=== PATIENT | female | born 1965 | race Caucasian/White ===

== ENCOUNTER 2024-06-12 06:48 | Day surgery (SDC) | payer OTHER ==
[2024-06-10 16:34] VITALS: BP 156/91
[~2024-06-12] VITALS: Ht 175.3 cm; Wt 63.6 kg
[~2024-06-12 06:48] MED LIST: MIDAZOLAM HCL 5 MG/5 ML VIAL IV PRN; fentaNYL citrate 100 MCG/2 ML VIAL IV PRN; propofoL 200 MG/20 ML VIAL ONE
[2024-06-12] MEDS ORDERED: LACTATED RINGER'S 1,000 ML IV SCH (07:00)
[2024-06-12] MEDS ORDERED: LIDOCAINE HCL 1% 5 ML SDV INJ ONE (07:00)
[2024-06-12] MEDS ORDERED: IBLOOD GLUCOSE TEST STRIP 1 EA TEST VI PRN (07:00)
[2024-06-12 07:04] VITALS: BP 123/65
[2024-06-12] MEDS ORDERED: NEURONTIN300 MG PO (07:09)
[2024-06-12] MEDS ORDERED: NEXIUM20 MG PO (07:10)
[2024-06-12] MEDS ORDERED: LANSOPRAZOLE30 MG PO (07:11)
[2024-06-12] MEDS ORDERED: BUSPIRONE HCL10 MG PO (07:11)
[2024-06-12] MEDS ORDERED: HYDROCHLOROTH12.5 M1 PO (07:12)
[2024-06-12] MEDS ORDERED: LACTATED RINGER'S 1,000 ML IV ONE (08:37)
--- NOTE | 2024-06-12 08:47 | NUR ---
06/12/24 0847 Holly Dillard 0842-PATIENT ARRIVED TO PACU ON 10L MASK ORAL AIRWAY IN PLACE RR EVEN LAYING LEFT LATERAL. NONAROUSABLE. ABDOMEN SOFT IVF INFUSING. SINUS BRADYCARDIA HR 50'S. 0846-PATIENT STARTING TO AROUSE OPENING EYES OPENS MOUTH AND ORAL AIRWAY REMOVED. DOZES BACK TO SLEEP. 6L MASK RR EVEN 100%
[2024-06-12 09:17] VITALS: BP 123/67
--- NOTE | 2024-06-12 09:48 | OR ---
[facility] [address], [place] [address] Signed DATE OF OPERATION: 06/12/2024 SURGEON: Chelo Robledo MD PREOPERATIVE DIAGNOSES: 1. Gastroesophageal reflux. 2. History of mild gastritis. 3. 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 4. Possible gastroparesis. 5. Nausea and vomiting q.a.m. 6. Paternal grandmother with colon cancer dying at age 52. 7. Hemorrhoids. 8. Redundant colon. 9. Colonic inertia. POSTOPERATIVE DIAGNOSES: 1. Mild diffuse gastritis. 2. Short lower esophageal sphincter. 3. GE junction at 35 cm. 4. Tortuous sigmoid and left colon. 5. Minimal to moderate internal hemorrhoids. 6. Minimal internal anal skin tags. PROCEDURES: 1. Esophagogastroduodenoscopy with CLOtest and biopsies of the antrum, GE junction. 2. Colonoscopy without biopsy. FINDINGS: The patient did not have any visible evidence of Madrigal's esophagus. ESTIMATED BLOOD LOSS: None. INDICATIONS: Jena is a 59-year-old female, asked to see me for a followup upper and lower endoscopy. She had a colonoscopy in [address] 44 [address] Boubacar Coughlin. She had GI bleeding associated with hemorrhoids. She later went to see Dr. Obregon for upper and lower endoscopy in 2018 at the age of 53. She had a redundant colon and possibly Madrigal's esophagus and gastroparesis. She later went to see Dr. Leodan Rosado for followup upper endoscopy in 2020 at the age of 56. The biopsy showed some mild Electronically Signed By: CHELO ROBLEDO MD 06/12/24 0948 PATIENT NAME: JENA MORALEZ OPERATIVE REPORT DATE OF : 69 REPORT #: [id number] PHYSICIAN: CHELO ROBLEDO MD PCP: ROSEMARY VALIENTE MD REPORT IS CONFIDENTIAL AND NOT TO BE RELEASED WITHOUT AUTHORIZATION [facility] [address], [place] [address] Signed gastritis and some inflammation at the GE junction, but no Madrigal's mucosa. Her CLOtest was negative. She told me she likes to use marijuana to help her sleep and she often has nausea, vomiting in the mornings. She uses Nexium for the acid reflux. She also told me that her paternal grandmother at the age of 52 with colon cancer. She also describes some level of colonic inertia and/or constipation clear back to her childhood. She cannot tolerate the viscosity associated with the MiraLAX. She therefore uses about 1/4 of the Senna pill as needed for constipation. She is also very allergic to milk and whey protein. She has multiple drug allergies. She has three children, all born vaginally and had an episiotomy. She said that did not change her bowel habits. She also uses fish oil for ADD. In the office I had given her a pamphlet on both upper and lower endoscopy. We had reviewed the concept of a bowel prep. She wanted to use a commercial bowel prep on this occasion because the MiraLAX is beginning to bother her due to its viscosity. We therefore called in a commercial bowel prep to her pharmacy. She follows the directions for that bowel prep on the packaging. She understands that she needs monitored anesthesia care propofol infusion given her history along with her daily use of marijuana. That proved to be a feng decision today. She also understands an adult person has to take her home afterwards. She had expressed understanding and wished to proceed. DESCRIPTION OF PROCEDURE: Jena was taken into our endoscopy suite and placed in a supine semi-recumbent position. The posterior oropharynx was anesthetized with lidocaine spray. A bite block was utilized for the case. The adult gastroscope was introduced and advanced under direct visualization of camera. Her duodenum and pyloric bulb were unremarkable. The stomach showed some very mild erythematous changes throughout. We went ahead and took a biopsy of the antrum for CLOtest as well as pathologic review. Upon retroflexion of scope, she does not appear to have a true hiatal hernia. On inspection, it looks like she has a short lower esophageal sphincter. There is no evidence of any stricture. There is no gastric or esophageal varices. Her Z-line is minimally disrupted. There is no visible evidence of any Madrigal's esophagus. The GE junction is at 35 cm. We went ahead and took a biopsy along the edge of the Z-line for pathologic review. There was no distal esophagitis. No middle or upper esophagitis. After this, the gas was suctioned out and the gastroscope removed. Rosemary tolerated the procedure quite well. Rosemary was rotated into the left lateral decubitus position. 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 A digital rectal exam was performed. This was unremarkable. She had good sphincter tone. Not much in the way of external hemorrhoids. There were no masses. The adult colonoscope was introduced and advanced under direct visualization of camera. She has a tortuous sigmoid and left colon. It took extra propofol and abdominal compression to get the scope to pass and finally down into the cecum. Her entire colon was not particularly long, it is under 100 cm. Her prep was good. We could see the appendiceal orifice and Electronically Signed By: CHELO ROBLEDO MD 06/12/24 0948 PATIENT NAME: HOME,JENA ANGELA OPERATIVE REPORT DATE OF : 69 REPORT #: [id number] PHYSICIAN: CHELO RBOLEDO MD PCP: ROSEMARY VALIENTE MD REPORT IS CONFIDENTIAL AND NOT TO BE RELEASED WITHOUT AUTHORIZATION [address] [address] Signed ileocecal valve. The scope was then slowly withdrawn. Again, we came back through this tortuous left and sigmoid colon. No diverticulosis. No polyps. The rectum was unremarkable. Upon retroflexion of scope she does have minimal to moderate internal hemorrhoids. She has several small internal anal skin tags. After this, the gas was suctioned out. The colonoscope removed. Jena tolerated the procedure quite well. RECOMMENDATIONS: I will see Jena back in my office in 7 to 14 days to review her results. She does not appear to have any obvious Madrigal's esophagus. Chelo Robledo MD ALB/MODL /[id number] cc: MD Rosemary Mahajan MD Copies: CHELO ROBLEDO MD ~ Electronically Signed By: CHELO ROBLEDO MD 06/12/24 0948 PATIENT NAME: JENA MORALEZ OPERATIVE REPORT DATE OF : 69 REPORT #: [id number] PHYSICIAN: CHELO ROBLEDO MD PCP: ROSEMARY VALIENTE MD REPORT IS CONFIDENTIAL AND NOT TO BE RELEASED WITHOUT AUTHORIZATION
--- NOTE | 2024-06-16 16:09 | PATH ---
[facility] [address] [facility] [place] [place] [address] Signed SPECIMEN(S): A ANTRUM/PYLORUS BIOPSY SPECIMEN(S): B GE JUNCTION BIOPSY SPECIMEN SOURCE: A. ANTRUM/PYLORUS BIOPSY B. GE JUNCTION BIOPSY CLINICAL HISTORY: Possible Madrigal's, gastroparesis, mild gastritis, GERD, colonic inertia, N/V. Post: Mild gastritis, small hiatal hernia, tortuous colon, internal skin tags and hemorrhoids FINAL PATHOLOGIC DIAGNOSIS: A. Antrum/pylorus, biopsy: - Gastric mucosa with mild superficial chronic inflammation. - Negative for evidence of Helicobacter organisms on routine HE stained sections. B. GE junction, biopsy: - Esophageal epithelium, negative for significantly increased epithelial eosinophils. - Negative for glandular mucosa. JVR:cml MICROSCOPIC EXAMINATION: Histologic sections of all submitted blocks are examined by light microscopy. These findings, together with the gross examination, support the pathologic diagnosis. GROSS DESCRIPTION: A. The specimen, labeled and designated "Home, antrum biopsy," is received in formalin and consists of one rios soft tissue fragment, 0.2 cm. Entirely submitted in (A1). B. The specimen, labeled and designated "Home, GE junction biopsy," is received in formalin and consists of one rios soft tissue fragment, 0.2 cm. Entirely submitted in (B1). JS (under the direct supervision of a pathologist) The Gross Description was prepared using a voice recognition system. The report was reviewed for accuracy; however, sound-alike word errors, addition and/or deletions may occur. If there is any question about this report, please contact Client Services. PATIENT NAME: JENA MORALEZ PATHOLOGY DATE OF : 69 REPORT #: [id number] PHYSICIAN: KATH YANCEY PCP: SOPHIE VALIENTE MD REPORT IS CONFIDENTIAL AND NOT TO BE RELEASED WITHOUT AUTHORIZATION [facility] [address] [place] [address] [place], [place] [address] Signed PERFORMING LABORATORY: Technical component was performed by [email or web address], [address] [place] [address] (CLIA# [id number]). Professional interpretation was performed by [facility] - [address] [address] (CLIA#: [id number]). Diagnostician: Alexx Cook MD Pathologist Electronically Signed 06/16/2024 Copies: ~ PATIENT NAME: JENA MORALEZ PATHOLOGY DATE OF : 69 REPORT #: [id number] PHYSICIAN: KATH YANCEY PCP: SOPHIE VALIENTE MD REPORT IS CONFIDENTIAL AND NOT TO BE RELEASED WITHOUT AUTHORIZATION
== END 2024-06-12 09:30 | disposition home or self-care (01) ==
LOC: DS 06:48
PROVIDERS: ATTEND Colon & Rectal Surgery
PROC: 0DB68ZX Excision of Stomach, Via Natural or Artificial Opening Endoscopic, Diagnostic (ICD-10-PCS; 2024-06-12)
PROC: 0DJD8ZZ Inspection of Lower Intestinal Tract, Via Natural or Artificial Opening Endoscopic (ICD-10-PCS; principal; 2024-06-12 08:15)
PROC: 0DB48ZX Excision of Esophagogastric Junction, Via Natural or Artificial Opening Endoscopic, Diagnostic (ICD-10-PCS; 2024-06-12 08:15)
DX: K29.50 Unspecified chronic gastritis without bleeding (principal); K22.89 Other specified disease of esophagus; K64.8 Other hemorrhoids; K64.4 Residual hemorrhoidal skin tags; K63.89 Other specified diseases of intestine; K21.9 Gastro-esophageal reflux disease without esophagitis; K59.09 Other constipation; K59.9 Functional intestinal disorder, unspecified; J45.20 Mild intermittent asthma, uncomplicated; F98.8 Other specified behavioral and emotional disorders with onset usually occurring in childhood and adolescence; Z79.899 Other long term (current) drug therapy; Z88.0 Allergy status to penicillin; Z88.5 Allergy status to narcotic agent; Z88.8 Allergy status to other drugs, medicaments and biological substances; Z90.49 Acquired absence of other specified parts of digestive tract; Z90.710 Acquired absence of both cervix and uterus; Z80.0 Family history of malignant neoplasm of digestive organs
CPT/HCPCS: 00813; 36415; 87077; J2704; J7121